=== PATIENT | female | born 1955 | race Hispanic/Latino ===

== ENCOUNTER 2022-04-18 05:56 | Observation (INO) | payer OTHER ==
[~2022-04-18] VITALS: Ht 160 cm; Wt 63.5 kg
[~2022-04-18 05:56] MED LIST: AMBIEN5 MG PO; AMPHETAMINE SAL15 MG PO; ESCITALOPRAM OX10 MG PO; TERBINAFINE HC250 MG PO; XANAX1 MG PO
[2022-04-18] MEDS ORDERED: LIDOCAINE 1% W/EPINEPHRINE 20 ML VIAL ONE (08:31)
[2022-04-18] MEDS ORDERED: BUPIVACAINE 0.25% 30ML SDV ONE (08:31)
[2022-04-18] MEDS ORDERED: LIDOCAINE HCL 2% JELLY 5 ML TUBE ONE (08:31)
[2022-04-18 11:30] VITALS: BP 145/81
[2022-04-18] MEDS: HYDROCODONE/APAP 7.5MG-325MG 1 EA TAB PO PRN ×2 (12:19→17:55)
[2022-04-18 12:30] VITALS: BP 145/81
[2022-04-18] MEDS ORDERED: PHENYLEPHRINE HCL 1% 10 MG/ML VIAL ONE (12:41)
[2022-04-18] MEDS ORDERED: ONDANSETRON HCL INJ 2MG/ML 2ML 2 MG/ML VIAL ONE (12:41)
[2022-04-18] MEDS ORDERED: EPHEDRINE SULFATE INJ 50 MG/ML VIAL ONE (12:41)
[2022-04-18] MEDS ORDERED: PROPOFOL IV EMULSION 10 MG/ML 20 ML VIAL ONE (12:41)
[2022-04-18] MEDS ORDERED: SEVOFLURANE INHAL SOLN 250 ML PEN BTL ONE (12:41)
[2022-04-18] MEDS ORDERED: DEXAMETHASONE SOD PHOS INJ 4 MG/ML SDV ONE (12:41)
[2022-04-18] MEDS ORDERED: LIDOCAINE HCL 2% LOCAL INJ 5 ML SDV VIAL INJ ONE (12:41)
[2022-04-18] MEDS ORDERED: POVIDONE IODINE 0.05% 0.05 % ML PO ONE (12:41)
[2022-04-18 12:52] VITALS: BP 145/81
[2022-04-18] MEDS ORDERED: FENTANYL CITRATE/PF 100MCG/2 ML INJ ONE (12:54)
[2022-04-18] MEDS ORDERED: MIDAZOLAM HCL 2 MG/2 ML VIAL ONE (12:54)
[2022-04-18] MEDS: SODIUM CHLORIDE 0.9% 1000ML 1,000 ML IV SCH ×2 (13:57→20:48)
[2022-04-18] MEDS: HYDROMORPHONE 1MG/1ML INJ IV PRN ×3 (15:30→23:13)
[2022-04-18 16:42] VITALS: BP 125/72
[2022-04-18 20:00] VITALS: BP 115/65
[2022-04-19] VITALS: BP 115/57
[2022-04-19] MEDS: HYDROMORPHONE 1MG/1ML INJ IV PRN (03:41)
[2022-04-19 04:00] VITALS: BP 135/70
[2022-04-19] MEDS: SODIUM CHLORIDE 0.9% 1000ML 1,000 ML IV SCH (05:15)
[2022-04-19] MEDS: HYDROCODONE/APAP 7.5MG-325MG 1 EA TAB PO PRN ×2 (06:17→10:36)
[2022-04-19 08:19] VITALS: BP 118/67
[2022-04-19 08:21] VITALS: BP 118/67
[2022-04-19 08:58] VITALS: BP 118/67
[2022-04-19 11:48] VITALS: BP 101/54
== END 2022-04-19 13:00 | disposition home or self-care (01) ==
LOC: OR 05:56 → PACU V 09:56 → MED/SURG 11:38
PROVIDERS: ADMIT Surgery; ATTEND Surgery
DX: K64.8 Other hemorrhoids (principal); F32.A Depression, unspecified; F41.9 Anxiety disorder, unspecified; Z01.818 Encounter for other preprocedural examination; Z01.812 Encounter for preprocedural laboratory examination; Z20.822 Contact with and (suspected) exposure to COVID-19; Z88.0 Allergy status to penicillin
CPT/HCPCS: 0223U; 36415; 46260; 46700; 71046; 88304; 96360; 96361 ×2; G0378 ×2; J1100; J1170 ×2; J2001 ×2; J2250; J2370; J2405; J2704; J3010; J7030 ×2